=== PATIENT | female | born 1965 | race Caucasian/White ===

== ENCOUNTER → 2020-09-06 09:52 | Outpatient (CLI) | payer BC, SELFPAY ==
--- NOTE | ~2020-09-06 | US_ITS ---
EXAMINATION: US pelvic complete DATE: 09/06/2020 11:16 INDICATION: Pelvic pain. Evaluate for fibroids. Previous uterine ablation. Comparison:No prior studies for comparison. TECHNIQUE: Multiple transabdominal sonographic images of the pelvis performed. FINDINGS: The uterus measures 6.9 x 3.4 x 5.2 cm. No discrete uterine mass is identified. The endomet rial complex measures 5.5 mm. The right ovary measures 1.9 x 1 x 1.4 cm and the left ovary measures 1.1 x 1.3 x 1.1 cm. There are small follicles in each ovary. Normal doppler signal in both ovaries. There is no free fluid in the pelvis. There are no abnormal masses seen on either side. IMPRESSION: 1. Thickened endomtrial complex for postmenopausal female. The differential diagnosis includes endome trial hyperplasia, polyp and carcinoma. Biopsy is recommended. Reviewed, dictated and finalized at location A. IMPRESSION: 1. Thickened endomtrial complex for postmenopausal female. The differential yolanda gnosis includes endometrial hyperplasia, polyp and carcinoma. Biopsy is recommended.
== END ==
PROVIDERS: Visit Provider Nurse Practitioner Family
DX: D25.9 Leiomyoma of uterus, unspecified (principal)
CPT/HCPCS: 76856

== ENCOUNTER → 2020-09-20 11:12 | Outpatient (CLI) | payer BC, SELFPAY ==
--- NOTE | ~2020-09-20 | US_ITS ---
EXAMINATION: US pelvic complete DATE: 09/20/2020 11:35 INDICATION: Endometrial hyperplasia TECHNIQUE: Multiple transabdominal sonographic images of the pelvis were obtained. COMPARISON: 09/06/2020 FINDINGS: The uterus measures 7. 4 x 4 by 4.8 cm. The endometrial complex measures 4 mm. The right ov eamon is not visualized however no right adnexal abnormality is seen. The left ovary measures 2.1 x 1.3 x 1.8 cm. There is no free fluid in the pelvis. IMPRESSION: 1. Normal endometrial thickness. Reviewed, dictated and finalized at location B.
== END ==
PROVIDERS: PCP Pediatrics; Visit Provider Nurse Practitioner Family
DX: N85.00 Endometrial hyperplasia, unspecified (principal)
CPT/HCPCS: 76856

== ENCOUNTER 2020-10-23 09:42 | Outpatient (CLI) | payer BC, SELFPAY ==
--- NOTE | ~2020-10-23 | CT_ITS ---
EXAMINATION: CT abdomen pelvis w con DATE: 10/23/2020 10:35 INDICATION: Right lower quadrant and pelvic pain for 2 years TECHNIQUE: Computed tomography (CT) of the abdomen and pelvis was performed with 100 cc Omnipaque 350 intravenous contrast. Automated exposure control and iterative reconstruction technique were employe d. Exam dose: 579.14 mGy-cm total exam DLP. COMPARISON: 09/20/2020 pelvic ultrasound examination FINDINGS: The lung bases are clear. Normal heart size. No pericardial or pleural effusion. The liver, gallbladder, bile ducts, spleen, pancreas and pancreatic duct are unremarkable. Normal morphology of the adrenal glands. No renal mass lesion or urinary tract calculus or hydroureteronephrosis. Normal caliber of the abdominal aorta. No intraperitoneal or retroperitoneal or pelvic mass lesion or adenopathy or ascites. The uterus, adnexal areas and urinary bladder are unremarkable. No bowel obstruction, bowel wall thickening, pneumatosis or intraperitoneal free air. There is divert iculosis of the colon; no CT evidence of diverticulitis. No CT evidence of appendicitis. Small fat-containing umbilical hernia. Included skeletal structures are unremarkable. IMPRESSION: Diverticulosis of the colon; no CT evidence of diverticulitis Reviewed, dictated and finalized at [facility]. Reviewed, dictated and finalized at location B.
== END 2020-10-23 09:43 | disposition home or self-care (01) ==
PROVIDERS: PCP Pediatrics
DX: R10.2 Pelvic and perineal pain (principal); K57.30 Diverticulosis of large intestine without perforation or abscess without bleeding
CPT/HCPCS: 74177; Q9967

== ENCOUNTER 2024-05-20 08:23 | Outpatient (CLI) | payer BC, SELFPAY | END 2024-05-20 08:24 | disposition home or self-care (01) | LOC: MICIMG 08:25 | PROVIDERS: PCP Nurse Practitioner Family; Visit Provider Nurse Practitioner Family | DX: M25.552 Pain in left hip (principal) | CPT/HCPCS: 73502 ==